=== PATIENT | female | born 1975 | race Caucasian/White ===

== ENCOUNTER 2016-07-07 15:59 | Observation (INO) | payer OTHER ==
[2016-07-10] MEDS ORDERED: ALBUTEROL2.5 MG/3 M NEB (08:50)
[2016-07-10] MEDS ORDERED: BACLOFEN10 MG PO (08:51)
[2016-07-10] MEDS ORDERED: CATAPRES0.1 MG PO (08:51)
[2016-07-10] MEDS ORDERED: COLACE100 MG PO (08:51)
[2016-07-10] MEDS ORDERED: AMITRIPTYLINE H25 MG PO (08:51)
[2016-07-10] MEDS ORDERED: NEURONTIN800 MG PO (08:52)
[2016-07-10] MEDS ORDERED: SYNTHROID125 MCG PO (08:53)
[2016-07-10] MEDS ORDERED: GLYDO11 ML TOP (08:53)
[2016-07-10] MEDS ORDERED: IMITREX100 MG PO (08:54)
[2016-07-10] MEDS ORDERED: SEROQUEL200 MG PO (08:54)
[2016-07-10] MEDS ORDERED: BACTRIM DS TAB1 EACH PO (08:54)
[2016-07-10] MEDS ORDERED: COMBIVENT RESPIM4 GM IH (08:54)
[2016-07-10] MEDS ORDERED: PHENERGAN25 M1 PO (08:54)
[2016-07-10] MEDS ORDERED: LEVAQUIN500 MG PO (08:55)
[2016-07-10] MEDS ORDERED: SYMBICORT 16010.2 GM IH (08:56)
[2016-07-10] MEDS ORDERED: MEDROL4 M1 PO (08:56)
== END 2016-07-09 14:19 | disposition home or self-care (01) ==
LOC: ER 15:59 → MED 18:32
PROVIDERS: ADMIT Internal Medicine
DX: J44.1 Chronic obstructive pulmonary disease with (acute) exacerbation (principal); J20.9 Acute bronchitis, unspecified; J44.0 Chronic obstructive pulmonary disease with (acute) lower respiratory infection; G06.2 Extradural and subdural abscess, unspecified; I10 Essential (primary) hypertension; E03.9 Hypothyroidism, unspecified; F32.9 Major depressive disorder, single episode, unspecified; F17.210 Nicotine dependence, cigarettes, uncomplicated; Z80.8 Family history of malignant neoplasm of other organs or systems; Z82.49 Family history of ischemic heart disease and other diseases of the circulatory system; Z79.2 Long term (current) use of antibiotics; Z79.891 Long term (current) use of opiate analgesic; Z79.899 Other long term (current) drug therapy; Z90.710 Acquired absence of both cervix and uterus; Z98.890 Other specified postprocedural states
CPT/HCPCS: 36415; 87502; 94640; 96372; 96374; 96376; G0378; J1650